=== PATIENT | female | born 1955 | race Caucasian/White ===

== ENCOUNTER → 2016-11-05 | Outpatient (CLI) | payer OTHER ==
[~2016-11-05] MED LIST: AMOXIL250 MG PO; BREO ELLIPTA 21 EACH IH; CEFTRIAXONE IJ; CELEBREX 200MG200 MG PO; CIPRO 500MG TA500 MG PO; CYMBALTA30 MG PO; GLUMETZA500 M1 PO; IBUPROFEN400 MG PO; KENALOG IJ; LORTAB 500 MG-11 TAB PO; LYRICA50 MG PO; METFORMIN1000 MG PO; METFORMIN500 MG PO; NORCO 325 MG-51 TAB PO; PROAIR HFA0.09 MG/AC IH; ROPINIROLE HYDRO1 MG PO; TRAMADOL 50MG T50 MG PO; VITAMIN B122500 MCG SL; ZEGERID 20 MG-11 CAP PO
--- NOTE | 2016-11-06 22:32 | RADIOLOGY REPORT PS360 ---
MRI-L-SPINE W/O, MRI-3D RENDERING/MYELOGRAM ORDERING PHYSICIAN : KEVIN MERCADO CRNA PATIENT AGE: 61 years GENDER: Female INDICATION: LUMBAR BACK PAIN Back pain for years has gotten worse recently bilateral leg pain history diabetes TECHNIQUE: Sagittal STIR, T1, T2, axial T1 and T2. On 1.5T Siemens wide bore MRI. The 3-D MR myelogram image set obtained & performed on MRI workstation. Additional sagittal thin section T2 weighted dataset obtained from this latter acquisition as well (---76 CPT) note: This study was dictated with a voice-recognition system. There may be typographical error is related to such. If they are significant please notify us for corrections COMPARISON: None FINDINGS Lumbar vertebral bodies are intact with no compression fractures nor lesions. L5/S1. Degenerative disc space narrowing most evident to the left. Mild Diffuse disc bulge . Mild/ moderate facet arthropathy/hypertrophy left >right. Features combine to yield moderate encroachment and narrowing at the anterior left left lateral recess & entry left foramen L4/5 moderate disc bulge,, which becomes more pronounced at the foramen bilaterally.. Generous facet hypertrophy along with ligamentum flavum hypertrophy also narrows the spinal canal this level. Overall features yield mild/ moderate spinal stenosis.. Prominent left and moderate right foraminal stenosis stenosis also noted, due to the disc bulge along with the facet hypertrophy-. L3/4 mild eccentric disc bulge most evident to the right.. Indents anterior right aspect of the thecal sac Mild posterior element hypertrophy. Facet and ligament flavum hypertrophy. Mild spinal stenosis at this level. L2/3. Disc intact neural foramen widely patent. L1/2 disc intact with scant disc bulge T12/L1 disc intact T 11/12 disc intact. 3-D MR myelogram image set shows narrowing and tapering of the spinal canal most evident at L4/5 reflecting the mild/moderate spinal stenosis. Mild spinal stenosis also evident at the L 3/4 level Small 10 mm cyst lower pole right kidney most likely benign cyst. Ultrasound could further confirm such IMPRESSION-------- Bulging degenerative disc & posterior element hypertrophy yields spinal stenosis at L4/5 & L3/4 . Moderate spinal stenosis L4/5 . & Bilateral foraminal encroachment most pronounced on left. . Mainly due to the prominent facet hypertrophy but also bulging disc.. .Mild spinal stenosis L3/4.. Mild disc bulge most evident right, along with mild posterior element hypertrophy. L5/S1. Degenerative disc bulge the left along with facet hypertrophy yields moderate left foraminal and recess encroachment
== END ==
LOC: RAD 07:48
DX: M54.5 Low back pain (principal)

== ENCOUNTER → 2017-05-21 | Day surgery (SDC) | payer OTHER ==
[~2017-05-21] VITALS: Ht 172.7 cm; Wt 89.8 kg
[~2017-05-21] MED LIST changes: +HYDROCHLOROTH12.5 M1 PO
[2017-05-21 14:32] VITALS: BP 177/83
[2017-05-21 14:50] VITALS: BP 168/75; BP 177/83
--- NOTE | 2017-05-21 15:00 | Procedure Note ---
Procedure detail Date of procedure: 05/21/17 Anesthesiologist: David Longoria Complications: None Pre-procedure diagnosis: Degenerative disease cervical spine multiple levels. Cervical postlaminectomy syndrome. Post-procedure diagnosis: Same. Indications for procedure: Very pleasant 61-year-old white female that comes our procedural clinic today for her initial intrathecal pain pump refill. Patient complaining of some increased pain with activity. Her pump currently contains hydromorphone 1 mg/mL at 0.2 mg per day. We will increase her to 0.25 mg per day. Operative site looks clean and dry without any sign of infection. Objective: Patient is awake alert oriented 3. In no acute distress. Flexion extension lumbar spine somewhat guarded secondary to pain. Deep tendon reflexes upper lower extremities normal. Motor strength upper lower extremities normal. There is no gross sensory deficit. Gait is normal. Positive straight leg raise test at 30 degrees bilaterally. Procedure detail: Details of the procedure works spine to the patient. The patient was taken to procedure room and placed in the sitting position on the fluoroscopy table. The area over the lumbar spine was cleansed using chlorhexidine as a cleansing solution. The pump was accessed with ease using a 22-gauge accessing from the refill kit. 9 mL of solution was withdrawn and discarded appropriately. The pump was then filled with 20 mL of hydromorphone 1 mg/mL. The pump was interrogated. The rate was increased to 0.25 mg per day. Patient's PTC ([id number]) dose will be set at 0.02 mg twice a day. Patient tolerated procedure without difficulty. There were no complications. Plan and disposition: Patient was reevaluated 15 minutes postprocedure. She is doing very well. She'll return to see us at her next refill date. Patient was instructed to give us a call she has any problems or issues. at 1500
[2017-05-21 15:06] VITALS: BP 150/75
== END ==
LOC: PM 14:21
DX: M50.30 Other cervical disc degeneration, unspecified cervical region (principal); M96.1 Postlaminectomy syndrome, not elsewhere classified

== ENCOUNTER → 2017-07-02 | Day surgery (SDC) | payer OTHER ==
[~2017-07-02] VITALS: Ht 172.7 cm; Wt 90.7 kg
[2017-07-02 15:17] VITALS: BP 187/74
[2017-07-02 15:49] VITALS: BP 187/74
[2017-07-02 15:50] VITALS: BP 158/92
--- NOTE | 2017-07-02 16:13 | Procedure Note ---
Procedure detail Date of procedure: 07/02/17 Anesthesiologist: David Longoria Complications: None Pre-procedure diagnosis: Degenerative disc disease lumbar spine multiple levels lumbar radiculopathy symptoms. Post-procedure diagnosis: Same. Indications for procedure: Very pleasant 61-year-old white female we've been treating for quite some time for chronic low back pain with an intrathecal pain pump. Patient presents to our procedural clinic today for intrathecal pain pump refill. Her pump currently contains hydromorphone 5 mg/mL and bupivacaine 5 mg/mL. Current rate is 0.5 g per day. Her PTC is 0.03 mg 4 times a day. Procedure detail: Details of the procedure is going to the patient. The patient taken to the procedure room and placed in the sitting position. The area over the pump was cleansed using chlorhexidine as a cleansing solution. The pump was accessed with EEGs and a 22-gauge needle from the refill kit. 3 mL of solution was withdrawn and discarded verbally. The pump was then filled with 20 mL of hydromorphone 5 mg/mL and bupivacaine 5 mg/mL. The pump was interrogated and the rate was continued at 0.5 mg per day. The PTC was unchanged. Plan and disposition: Patient tolerated the procedure without difficulty. There are no complications. at [id number]
[2017-07-02 16:22] VITALS: BP 137/74
== END ==
LOC: PM 14:58
DX: M51.36 Other intervertebral disc degeneration, lumbar region (principal)

== ENCOUNTER → 2017-07-16 | Day surgery (SDC) | payer OTHER ==
[~2017-07-16] VITALS: Ht 172.7 cm; Wt 88.5 kg
[2017-07-16 15:21] VITALS: BP 155/77
[2017-07-16 15:34] VITALS: BP 155/77; BP 158/85
--- NOTE | 2017-07-16 15:49 | Procedure Note ---
Procedure detail Date of procedure: 07/16/17 Anesthesiologist: David Longoria Complications: None Pre-procedure diagnosis: Degenerative disease lumbar spine multiple lumbar post laminotomy syndrome. Post-procedure diagnosis: Same. Indications for procedure: Very pleasant 61-year-old white female that we've been treating for quite some time with intrathecal pain pump for chronic low back pain secondary to degenerative disease lumbar spine and postlaminectomy syndrome lumbar spine. Patient currently has Dilaudid 5 mg per 1 mL plus bupivacaine 5 mg/mL. Patient has been having side effects since adding bupivacaine to the pump. Patient reports metallic taste in the mouth, nausea vomiting. We will discontinue bupivacaine in the pump today. Patient will continue with Dilaudid 5 mg for at 0.5 mg per day. Objective: Patient is awake alert oriented 3. In no acute distress. Flexion extension lumbar spine somewhat guarded secondary to pain. Deep tendon reflexes upper lower extremities normal. Motor strength upper and lower extremities normal. There is no gross sensory deficit. Gait is normal. Positive straight leg raise test at 30 degrees bilaterally. Procedure detail: Details of the procedure spine to the patient per the patient taken to procedure room and placed in the sitting position. The area over the pump was cleansed using chlorhexidine as a cleansing solution. The pump was accessed with ease using a 22-gauge needle from refill kit. 18.2 mL of solution was withdrawn from the pump and discarded appropriately. The pump was then filled with 20 mL of Dilaudid 5 mg/mL. The pump was interrogated. The rate was continued at 0.5 mg per day. Patient tolerated procedure without difficulty. There were no complications. Plan and disposition: Patient was evaluated 10 minutes post procedure. She is doing very well. She'll return to see us in the pain clinic for further evaluation. at [id number]
[2017-07-16 15:57] VITALS: BP 155/77
== END ==
LOC: PM 12:30
DX: M51.36 Other intervertebral disc degeneration, lumbar region (principal); M96.1 Postlaminectomy syndrome, not elsewhere classified

== ENCOUNTER → 2017-07-19 | Outpatient (CLI) | payer OTHER ==
[2017-07-19 12:00] LABS: HEMOGLOBIN 10.3 g/dL (12.2-16.2); LYMPH # 1.7 K/mm3 (0.7-4.5); LYMPH % 34.1 % (10-50.0)
== END ==
LOC: LAB 11:35
PROVIDERS: Internal Medicine Adolescent Medicine
DX: D50.0 Iron deficiency anemia secondary to blood loss (chronic) (principal)